=== PATIENT | female | born 2000 | race Caucasian/White ===

== ENCOUNTER → 2024-04-13 10:12 | Outpatient (REF) | payer OTHER, SELFPAY ==
[2024-04-15 07:44] LABS: Quantiferon Plus TB1 minus NIL 0.01 IU/mL (<=0.34); Quantiferon Plus TB2 minus NIL 0.03 IU/mL (<=0.34); Quantiferon TB Gold Plus Negative (Negative)
== END ==
LOC: OHS 10:12
PROVIDERS: ATTENDING PHYSICIAN Nurse Practitioner Family
DX: Z23 Encounter for immunization (principal)
CPT/HCPCS: 36415; 86480